=== PATIENT | female | born 1975 | race Caucasian/White ===

== ENCOUNTER 2024-06-07 21:26 | Emergency (ER) | payer OTHER ==
[2024-06-07 21:31] VITALS: BMI 28.3
[2024-06-07 23:24] LABS: ABSOLUTE IMMATURE GRANULOCYTES 0.06 x10^3/uL (0.0-0.031); BASOPHILS # 0.04 x10^3/uL (0.01-0.08); EOSINOPHIL % 1.6 % (0.7-5.8); EOSINOPHILS # 0.21 x10^3/uL (0.04-0.36); HEMATOCRIT 41.8 % (34.1-44.9); MCHC 33.5 g/dl (32.2-35.5); MEAN CELL VOLUME 94.1 fl (79.4-94.8); MONOCYTE # 1.12 x10^3/uL (0.24-0.86); MONOCYTE % 8.7 % (4.7-12.5); PLATELET COUNT 239 x10^3/uL (182-369); RDW 12.2 % (12.2-17.1)
[2024-06-08] MEDS: KETOROLAC TROMETHAMINE 15 MG/ML VIAL IVPUSH ONE (00:36)
[2024-06-08 01:08] LABS: POTASSIUM 3.7 mmol/L (3.5-5.1)
[2024-06-08 01:09] LABS: CALCIUM 9.2 mg/dL (8.5-10.1)
[2024-06-08 01:10] LABS: ALBUMIN 3.3 g/dl (3.4-5.0)
[2024-06-08 01:12] LABS: CREATININE 0.8 mg/dL (0.55-1.3)
[2024-06-08 01:15] LABS: BILIRUBIN,TOTAL 0.2 mg/dL (0.2-1); TOT PROT 6.4 g/dl (6.4-8.2)
[2024-06-08 01:49] VITALS: BP 121/69; PULSE 76; RESP 18; TEMP 98.5
== END 2024-06-08 02:00 | disposition home or self-care (01) ==
LOC: JER 21:26
DX: R10.12 Left upper quadrant pain (principal)
CPT/HCPCS: 36415; 71046-TC-FY; 74019-TC-FY; 80053; 84703; 85025; 93005; 93010; 99285-25